=== PATIENT | male | born 1955 | race Caucasian/White ===

== ENCOUNTER 2019-03-03 08:16 | Emergency (ER) | payer BC ==
[~2019-03-03] VITALS: Ht 177.8 cm; Wt 95.7 kg
[2019-03-03 08:28] VITALS: Ht 177.8 cm; Wt 95.7 kg
[2019-03-03 09:30] VITALS: BP 132/75
== END 2019-03-03 09:28 | disposition home or self-care (01) ==
LOC: ED 08:16
DX: J34.0 Abscess, furuncle and carbuncle of nose (principal); I10 Essential (primary) hypertension
CPT/HCPCS: J0696